=== PATIENT | male | born 1990 | race Caucasian/White ===

== ENCOUNTER 2016-09-04 10:34 | Emergency (ER) | payer BC ==
--- NOTE | ~2016-09-04 | CT4 ---
[facility] A Service of [facility] & [facility] RADIOLOGY TEXT RESULTS PATIENT: JUAN M CORDON LOCATION: [facility] : [birth year] UNIT #: [id number] AGE: [address]: Anupam Beard MD SEX: M ORDER DR: [id number] [facility] [address] [place], [place] [address] [id number] MR#: [id number] Acc #: [id number] NAME: JUAN M CORDON : 1990 SEX: M STUDY DATE/TIME: 09/04/2016 11:37 UNIT: [facility] ROOM: STUDY DESCRIPTION: CT Abd and Pelv Wo Cont Attending Physician: Anupam Beard M.D. Ordering Physician: Anupam Beard M.D. Primary Care Physician: Momo Sparks M.D. MEDICAL IMAGING REPORT This report is preliminary unless electronic signature is present EXAM CT abdomen and pelvis without contrast 09/04/2016 1137 hours HISTORY 26-year-old man with complaint of left flank pain and vomiting since this morning. COMPARISON 08/10/2015. TECHNIQUE Helical noncontrasted images were obtained from the lung bases through the pubic symphysis. Sagittal and coronal reconstructions were performed. Total exam DLP 611 mGy-cm. This CT examination was performed with one or more of the following radiation dose reduction techniques: automatic exposure control, adjustment of mA and/or kV according to patient size, and iterative reconstruction. FINDINGS Images through the lung bases demonstrate minimal dependent atelectasis. The lungs are otherwise clear. There are no effusions. The distal esophagus is normal. Noncontrasted images through the abdomen demonstrate a normal appearance to the liver, spleen, pancreas and bile ducts. There are clips consistent with prior cholecystectomy. The adrenal glands are normal. The right kidney is normal in appearance with no mass, stone or distension. The left kidney demonstrates no mass or stone. There is very mild pelvocaliectasis and very mild left ureterectasis representing subtle change from the prior CT. There is no definite ureteral calculus seen however there is a 2 mm calcification in the region of the left ureterovesical junction which could represent a stone at the UVJ or just STS. [facility] A Service of [facility] & [facility] RADIOLOGY TEXT RESULTS PATIENT: JUAN M CORDON LOCATION: [facility] : [birth year] UNIT #: [id number] AGE: [address]: Anupam Beard MD SEX: M ORDER DR: passed into the bladder. The bladder is otherwise negative. Stomach and small bowel are normal. Abdominal aorta is normal in caliber. There is no colonic lesion seen. IMPRESSION 1. There is subtle pelvocaliectasis and ureterectasis on the left representing a change from 08/10/2015 with a 2 mm calcification in the region of the left ureterovesical junction which could represent a stone in the intramural portion of the ureter or a recently passed stone within the bladder. No right-sided stone is seen. 2. Postop change of cholecystectomy and appendectomy. Dictated by... Galina Childs M.D. THIS IS AN ELECTRONICALLY VERIFIED REPORT Galina Childs M.D. at 09/04/2016 2:30 PM GIORGI/swetha TD: 09/04/2016 12:44 JOB #: [id number] MEDICAL IMAGING REPORT Page 1 of 1 COPY
[2016-09-04 09:43] LABS: BASOPHIL% 0.3 % (0-2.5); EOSINOPHIL# 0.1 X10e3 (0-0.7); EOSINOPHIL% 0.9 % (0.0-7.0); HEMATOCRIT 41.6 % (38.0-50.0); HEMOGLOBIN 14.3 gm/dL (13.0-16.0); LYMPHOCYTE% 22.6 % (17.0-45.0); MEAN CELL VOLUME 82.9 FL (83-96); MEAN CORPUSCULAR HEMOGLOBIN 28.5 PG (28-34); MEAN CORPUSCULAR HGB CONC 34.3 g/dL (30-36); MEAN PLATELET VOLUME 7.3 FL (6.5-11.5); MONOCYTE# 0.6 X10e3 (0-1.0); MONOCYTE% 4.4 % (3.0-12.0); NEUTROPHIL# 9.5 X10e3 (1.5-7.1); NEUTROPHIL% 71.8 % (40-75); PLATELET COUNT 296 X10e3 (140-420); RED BLOOD COUNT 5.02 X10e (3.90-5.60); RED CELL DISTRIBUTION WIDTH 12.8 % (11.0-15.5); WHITE BLOOD COUNT 13.3 X10e3 (4.0-10.5)
[2016-09-04 09:44] LABS: DIFF IND NO
[2016-09-04 09:58] LABS: URINE SOURCE CLEAN CATCH
[2016-09-04 10:04] LABS: URINE APPEARANCE CLEAR; URINE BILIRUBIN NEG (NEG); URINE BLOOD 3+ (NEG); URINE COLOR DK YELLOW; URINE GLUCOSE NEG (NEG); URINE KETONE NEG (NEG); URINE LEUKOCYTE ESTERASE NEG (NEG); URINE NITRATE NEG (NEG); URINE PROTEIN 1+ (NEG); URINE SPECIFIC GRAVITY 1.035 (1.003-1.035)
[2016-09-04 10:06] LABS: URINE BACTERIA AUWI NEG (NEGATIVE); URINE SQUAMOUS EPITHELIAL CELL NONE SEEN /[HPF]
[2016-09-04 10:16] LABS: CULTURE INDICATED? NO
[2016-09-04 10:22] LABS: ALBUMIN SERUM 4.7 g/dL (3.5-5.0); BILIRUBIN, DIRECT 0.1 mg/dL (0.0-0.2); BILIRUBIN,INDIRECT 0.6 mg/dL (0.0-0.9); BILIRUBIN,TOTAL 0.7 mg/dL (0.2-2.0); BUN/CREATININE RATIO 21.11; CALCIUM SERUM 9.5 mg/dL (8.4-10.2); CREATININE SERUM 0.9 mg/dL (0.6-1.4); GLOM FILT RATE Estimated 118.3 mL/min (>60); PROTEIN TOTAL SERUM 7.5 g/dL (6.0-8.3)
[~2016-09-04 10:34] MED LIST: HYDROCODONE-APA1 T57 PO; IBUPROFEN PO; KEFLEX PO; NO MEDICATIONS; PERCOCET5/325 PO; ZYRTEC PO
== END 2016-09-04 13:50 | disposition home or self-care (01) ==
LOC: CED 10:34
PROVIDERS: Emergency Medicine
DX: N20.1 Calculus of ureter (principal); J45.909 Unspecified asthma, uncomplicated; Z90.49 Acquired absence of other specified parts of digestive tract; Z88.1 Allergy status to other antibiotic agents
CPT/HCPCS: 74176; 80048; 80076; 81003; 83690; 85025; 96374; 96375; 96376; 99284; J1885; J2270; J2405